=== PATIENT | female | born 1980 | race African-American/Black ===

== ENCOUNTER 2020-10-14 13:05 | Emergency (ER) | payer MEDICAID ==
[~2020-10-14] VITALS: Ht 165.1 cm; Wt 75.0 kg
[2020-10-14] MEDS ORDERED: TETANUS, DIPHTHERIA, PERTUSSIS VAC/PF 0.5ML (>7YR OLD) IM ONE (14:45)
[2020-10-14] MEDS ORDERED: ACETAMINOPHEN 325MG TABLET PO ONE (14:45)
[2020-10-14] MEDS ORDERED: METHOCARBAMOL 500MG TABLET PO ONE (14:45)
[2020-10-14] MEDS ORDERED: METH-653 MT (16:22)
[2020-10-14] MEDS ORDERED: TOPUD MT (16:22)
[2020-10-14 17:00] VITALS: BP 156/81
== END 2020-10-14 17:01 | disposition home or self-care (01) ==
LOC: ER 13:05
DX: S80.212A Abrasion, left knee, initial encounter (principal); S96.812A Strain of other specified muscles and tendons at ankle and foot level, left foot, initial encounter; M54.5 Low back pain; V49.49XA Driver injured in collision with other motor vehicles in traffic accident, initial encounter; Y93.89 Activity, other specified; Y92.89 Other specified places as the place of occurrence of the external cause; Y99.8 Other external cause status
CPT/HCPCS: 72100; 73562; 73610; 81025; 90471; 90715; 99284

== ENCOUNTER 2022-08-29 17:46 | Emergency (ER) | payer MEDICAID, MEDICARE ==
[~2022-08-29] VITALS: Ht 167.6 cm; Wt 85.0 kg
[~2022-08-29 17:46] MED LIST: METH-653 MT; TOPUD MT
[2022-08-29 17:52] VITALS: BP 125/56
[2022-08-30] MEDS ORDERED: ACETAMINOPHEN 325MG TABLET PO ONE (00:45)
== END 2022-08-29 18:58 | disposition left against medical advice (07) ==
LOC: ER 17:46
DX: Z53.21 Procedure and treatment not carried out due to patient leaving prior to being seen by health care provider (principal)